=== PATIENT | female | born 1940 | race Caucasian/White ===

== ENCOUNTER 2018-06-27 11:04 | Inpatient (IN) | payer OTHER ==
--- NOTE | 2018-06-27 11:55 | PDOC ---
History of Present Illness - General Chief Complaint: Irregular Heart Beat Stated Complaint: SENT BY PCP Time Seen by Provider: 06/27/18 11:49 History Source: Patient, Nuclear Monitoring Technician Used Exam Limitations: Language Barrier - History of Present Illness Initial Comments: 78 yo F w a pmh of HTN, CAD (+stent), HLD presents to the ER sent from her PCP for an irregular heart beat. The patient went to her kidney doctor - Dr. Carreno - who said she should come to the ER to be evaluated because her heart was beating slowly. She states she was sent here because her heart is beating slowly, she was pale, and her heart was irregular. She denies currently having any chest pain, nausea, vomiting, or diaphoresis. She endorses feeling very tired, fatigues and is lacking strength. She also endorses discomfort with her breathing and shortness of breath. When she speaks alot she gets tired and feels short of breath. She has not taken any medications for this discomfort. She has been experiencing difficulty sleeping because of her uncomfortable heart beat. She denies recent fevers. Denies dysuria but endorses frequency urgency and hesitancy. Denies any history of blood clots in her chest or legs. Denies syncope or falling down. Denies recent travel. Denies having a significant family history of heart disease. She was told by her advanced manager 8 days to stop taking atenolol and she has not been taking atenolol for the past 8 days. PCP: Jose Viadl Set Up Person: Dr. Carreno Gas Pump Attendant: Kaylah Vieira from [facility] - [phone] PSH: Stent, vascular procedure on veins Allergies: NKA, NKDA Social Hx: Denies smoking, drinking, or other substance usage. Past History - Past Medical History Allergies/Adverse Reactions: Allergies Allergy/AdvReac Type Severity Reaction Status Date / Time No Known Drug Allergies Allergy Verified 06/27/18 11:48 Home Medications: Ambulatory Orders Hydrochlorothiazide [Hctz -] 25 mg PO DAILY 10/02/12 Aspirin Coated [Ecotrin -] 81 mg PO DAILY 06/27/18 Atenolol [Tenormin -] 50 mg PO DAILY 06/27/18 Lipase/Protease/Amylase [John Durand 36,000 Units Capsule] 1 each PO TID 06/27/18 Valsartan [Diovan] 160 mg PO DAILY 06/27/18 Anemia: No Asthma: No Cancer: No Cardiac Disorders: Yes (STENT, CAD) CVA: No COPD: No CHF: No Dementia: No Diabetes: No GI Disorders: No Disorders: No HTN: Yes Hypercholesterolemia: No Liver Disease: No Seizures: No Thyroid Disease: No - Surgical History Abdominal Surgery: No Appendectomy: No Cardiac Surgery: Yes (STENT) Cholecystectomy: No Lung Surgery: No Neurologic Surgery: No Orthopedic Surgery: No - Immunization History Immunization Up to Date: No - Suicide/Smoking/Psychosocial Hx Smoking History: Never smoked Have you smoked in the past 12 months: No Information on smoking cessation initiated: No Hx Alcohol Use: No Drug/Substance Use Hx: No Substance Use Type: None Hx Substance Use Treatment: No Review of Systems - Review of Systems Able to Perform ROS?: Yes Comments:: CONSTITUTIONAL: Present: Fatigue Absent: fever, no chills EYES: Absent: visual changes ENT: Absent: ear pain, no sore throat CARDIOVASCULAR: Present: Palpitations Absent: chest pain RESPIRATORY: Present: SOB Absent: cough GI: Absent: abdominal pain, no nausea, no vomiting, no constipation, no diarrhea GENITOURINARY: Absent: dysuria, no frequency, no hematuria MUSKULOSKELETAL: Absent: back pain, no arthralgia, no myalgia SKIN: Absent: rash NEURO: Absent: headache *Physical Exam - Vital Signs Last Vital Signs Temp Pulse Resp BP Pulse Ox 97.9 F 49 L 16 117/54 L 99 06/27/18 11:14 06/27/18 11:14 06/27/18 11:14 06/27/18 11:14 06/27/18 11:14 - Physical Exam Comments: GENERAL: Well-appearing, well-nourished. No apparent distress. HEENT: Normocephalic, atraumatic. PERRL, EOM intact. CARDIOVASCULAR: Normal S1, S2. Bradycardic rate and regular rhythm. PULMONARY: No evidence of respiratory distress. Lungs clear to auscultation bilaterally. No wheezing, rales or rhonchi. ABDOMEN: Soft, non-distended, non-tender. EXTREMITIES: Normal ROM in all four extremities. No gross deformities. SKIN: Warm, dry. No rash NEUROLOGICAL: No focal neurological deficits. ED Treatment Course - LABORATORY CBC & Chemistry Diagram: 06/27/18 12:20 06/27/18 12:09 Medical Decision Making - Medical Decision Making 78 yo F w a pmh of HTN, CAD (+stent), HLD presents to the ER sent from her PCP for an irregular heart beat. The patient went to her kidney doctor - Dr. Carreno - who said she should come to the ER to be evaluated because her heart was beating slowly. She states she was sent here because her heart is beating slowly, she was pale, and her heart was irregular. She denies currently having any chest pain, nausea, vomiting, or diaphoresis. She endorses feeling very tired, fatigues and is lacking strength. She also endorses discomfort with her breathing and shortness of breath. When she speaks alot she gets tired and feels short of breath. She has not taken any medications for this discomfort. She has been experiencing difficulty sleeping because of her uncomfortable heart beat. She denies recent fevers. Denies dysuria but endorses frequency urgency and hesitancy. Denies any history of blood clots in her chest or legs. Denies syncope or falling down. Denies recent travel. Denies having a significant family history of heart disease. She was told by her advanced manager 8 days to stop taking atenolol and she has not been taking atenolol for the past 8 days. VS: Bradycardic, otherwise WNL DDx IBNLT: Symptomatic bradycardia, anemia, ACS/NC, arrhythmia, medication side effect, electrolyte/metabolic disturbance, UTI/pylo Plan: Labs, Urine, EKG, CXR, Re-assess. EKG: Sinus bradycardia. At Dr. Carreno's office the patient had multiple episodes of bradycardia into the 30's. Patient was supposed to goto her advanced manager tomorrow to get a holter set up. Given multiple episodes of dropped heart beats associated with fatigue we will admit the patient to Tele Obs *DC/Admit/Observation/Transfer Diagnosis at time of Disposition: Bradycardia, Dropped heart beats - Discharge Dispostion Condition at time of disposition: Stable Decision to Admit order: Yes - Referrals Referrals: Jose Vidal MD [Primary Care Provider] - - Patient Instructions - Post Discharge Activity
--- NOTE | 2018-06-27 12:13 | PDOC ---
Attending Attestation - Resident Resident Name: Kelvin Hurt - ED Attending Attestation I have performed the following: I have examined & evaluated the patient, The case was reviewed & discussed with the resident, I agree w/resident's findings & plan, Exceptions are as noted - HPI HPI: 06/27/18 12:08 78 yo F h/o htn here with bradycardia. was sent from DR Carreno office. per Dr Carreno pt has been on atenolol in the past was told to discontinue and didn't stop taking it. was also c/o right sided chest discomfort and sob. no lightheaded. no h/o pe or prior dvt. - Physicial Exam PE: 06/27/18 12:10 awake alert lungs clear bilaterally heart irreg bradycardia. no mrg abd soft nt nd.e xt wwp no edema. no calf tenderness. 2+ dp/ pt. nuero alert oriented x 3. 5 /5 all four ext. pulses symmetric bilaterally. - Medical Decision Making 06/27/18 12:12 78 yo F with h/o ht, her with chest discomfort bradycardia. sinus jerilyn on ekg. sinus arrthymia. 46 bpm. differential med side effect, hypothyroid, worseing renal faliure electrolyte abnormality, mi, plan labs cxr trop bnp coags, tsh, . pt jose require admission to telemetry for monitoring dysrhtymia, and r/o acs. hold atenolol. Heart Score/ECG Review #1 General ECG Interpretation: Sinus Rhythm, No acute ischemic changes - ECG Intrepretation Comment:: 06/27/18 12:14 sinus bradycardia, sinus dysrthymia. - [place]: Left [place] Deviation - ECG Impressions Bradycardia: Yes
[2018-06-27 12:43] LABS: HEMATOCRIT 36.8 % (32.4-45.2); HEMOGLOBIN 12.6 GM/dL (10.7-15.3); MCH 31.9 pg (25.7-33.7); MCHC 34.2 g/dl (32.0-36.0); MEAN CELL VOLUME 93.3 fl (80-96); MEAN PLT VOLUME 9.8 fl (7.5-11.1); MONO % 6.3 % (3.8-10.2); NEUT % 45.7 % (42.8-82.8); PLATELET COUNT 190 K/MM3 (134-434); RBC 3.95 M/mm3 (3.60-5.2); RDW 13.1 % (11.6-15.6); WHITE BLOOD COUNT 5.3 K/mm3 (4.0-10.0)
[2018-06-27 12:55] LABS: INR 1.05 (0.83-1.09); PROTHROMBIN TIME (PATIENT) 12.4 SEC (9.7-13.0)
[2018-06-27 13:18] LABS: ALBUMIN 3.9 g/dl (3.4-5.0); ALK PHOS 71 U/L (45-117); ANION GAP 6 MMOL/L (8-16); BILIRUBIN,TOTAL 0.5 mg/dL (0.2-1); BLOOD UREA NITROGEN 20 mg/dL (7-18); CALCIUM 9.2 mg/dL (8.5-10.1); CHLORIDE 101 mmol/L (98-107); CO2 28 mmol/L (21-32); CREATININE 1.2 mg/dL (0.55-1.3); GLUCOSE,RANDOM 99 mg/dL (74-106); MAGNESIUM 1.9 mg/dL (1.8-2.4); POTASSIUM 4.4 mmol/L (3.5-5.1); SGOT/AST 19 U/L (15-37); SGPT/ALT 21 U/L (13-61); SODIUM 135 mmol/L (136-145); TOT PROT 7.8 g/dl (6.4-8.2)
--- NOTE | 2018-06-27 16:09 | HP ---
Admitting History and Physical - Primary Care Physician PCP: Jose Vidal - Admission Chief Complaint: sent in for bradycardia History of Present Illness: 78 yo F h/o htn here with bradycardia. was sent from DR Carreno office. per Dr Carreno pt has been on atenolol in the past was told to discontinue and didn't stop taking it. was also c/o right sided chest discomfort and sob. no lightheaded. no h/o pe or prior dvt. EKG shows bradycardia with pause History Source: Patient, Medical Record - Past Medical History Cardiovascular: Yes: HTN - Smoking History Smoking history: Never smoked Have you smoked in the past 12 months: No - Alcohol/Substance Use Hx Alcohol Use: No Home Medications - Allergies Allergies/Adverse Reactions: Allergies Allergy/AdvReac Type Severity Reaction Status Date / Time No Known Drug Allergies Allergy Verified 06/27/18 11:48 - Home Medications Home Medications: Ambulatory Orders Hydrochlorothiazide [Hctz -] 25 mg PO DAILY 10/02/12 Aspirin Coated [Ecotrin -] 81 mg PO DAILY 06/27/18 Atenolol [Tenormin -] 50 mg PO DAILY 06/27/18 Lipase/Protease/Amylase [John Durand 36,000 Units Capsule] 1 each PO TID 06/27/18 Valsartan [Diovan] 160 mg PO DAILY 06/27/18 Review of Systems - Review of Systems Cardiovascular: reports: No Symptoms Respiratory: reports: No Symptoms Physical Examination Vital Signs: Vital Signs Temperature 98 F 06/27/18 15:33 Pulse Rate 52 L 06/27/18 15:33 Respiratory Rate 16 06/27/18 15:33 Blood Pressure 147/72 06/27/18 15:33 O2 Sat by Pulse Oximetry (%) 100 06/27/18 15:33 Constitutional: Yes: Calm Cardiovascular: Yes: Regular Rate and Rhythm, S1, S2 Respiratory: Yes: CTA Bilaterally Gastrointestinal: Yes: Normal Bowel Sounds, Soft Edema: No Neurological: Yes: Alert, Oriented Labs: CBC, BMP 06/27/18 12:20 06/27/18 12:09 Imaging - Results Chest X-ray: Report Reviewed (clear lung large heart unfolded aorta) Problem List - Problems (1) Bradycardia Assessment/Plan: telemetry hold all AV willian agents cardiology consult dvt ppx echo Code(s): R00.1 - BRADYCARDIA, UNSPECIFIED (2) HTN (hypertension) Assessment/Plan: hold atenolol will hold dureitic as well monitor BP Code(s): I10 - ESSENTIAL (PRIMARY) HYPERTENSION
[2018-06-27 16:50] VITALS: BMI 34.5
--- NOTE | 2018-06-27 17:28 | CON.CARD ---
Consult Consult Specialty:: Cardiology Reason for Consultation:: Bradycardia - History of Present Illness History of Present Illness: 78 F with HTN. Abnormal stress test in the past and describles possibly having a cath 2 years ago without intervention. She cannot recal name of charge weigher. Admitted with fatigue and bradycardia. ECG with Sinus jerilyn and marked sinus arryhthmia without prolonged pauses on Atenolol.. She has no chest pain. - Past Medical History Cardio/Vascular: Yes: HTN ...: No - Alcohol/Substance Use Hx Alcohol Use: No - Smoking History Smoking history: Never smoked Have you smoked in the past 12 months: No Home Medications - Allergies Allergies/Adverse Reactions: Allergies Allergy/AdvReac Type Severity Reaction Status Date / Time No Known Drug Allergies Allergy Verified 06/27/18 11:48 - Home Medications Home Medications: Ambulatory Orders Hydrochlorothiazide [Hctz -] 25 mg PO DAILY 10/02/12 Aspirin Coated [Ecotrin -] 81 mg PO DAILY 06/27/18 Atenolol [Tenormin -] 50 mg PO DAILY 06/27/18 Lipase/Protease/Amylase [John Dr 36,000 Units Capsule] 1 each PO TID 06/27/18 Valsartan [Diovan] 160 mg PO DAILY 06/27/18 Review of Systems - Review of Systems Constitutional: reports: No Symptoms, Lethargy Eyes: reports: No Symptoms HENT: reports: No Symptoms Neck: reports: No Symptoms Cardiovascular: reports: Shortness of Breath. denies: Chest Pain, Edema, Palpitations Respiratory: reports: No Symptoms Gastrointestinal: reports: No Symptoms Vital Signs: Vital Signs Temperature 98 F 06/27/18 16:36 Pulse Rate 58 L 06/27/18 16:36 Respiratory Rate 18 06/27/18 16:36 Blood Pressure 122/78 06/27/18 16:36 O2 Sat by Pulse Oximetry (%) 100 06/27/18 15:33 Constitutional: Yes: Well Nourished, No Distress, Calm Eyes: Yes: Conjunctiva Clear, EOM Intact HENT: Yes: Atraumatic, Normocephalic Neck: Yes: Supple, Trachea Midline Respiratory: Yes: Regular, CTA Bilaterally Gastrointestinal: Yes: Normal Bowel Sounds Cardiovascular: Yes: Bradycardia JVD: No Carotid Bruit: No PMI: Non-Displaced Heart Sounds: Yes: S1, S2 Murmur: No: Systolic Murmur, Diastolic Murmur Edema: No - Other Data Labs, Other Data: CBC, BMP 06/27/18 12:20 06/27/18 12:09 INR, PTT INR 1.05 (0.83-1.09) 06/27/18 12:20 Troponin, BNP 06/27/18 12:09 Troponin I < 0.02 Troponin, BNP 06/27/18 12:09 Troponin I < 0.02 Sinus jerilyn Sinus arrhythmia no ST T changes. Problem List - Problems (1) Bradycardia Code(s): R00.1 - BRADYCARDIA, UNSPECIFIED Assessment/Plan 78 F with HTN. Abnormal stress test in the past and describles possibly having a cath 2 years ago without intervention. She cannot recal name of charge weigher. Admitted with fatigue and bradycardia. ECG with Sinus jerilyn and marked sinus arryhthmia without prolonged pauses on Atenolol.. She has no chest pain. Hold Atenolo. No indication for pacing. Monitor on telem. Avoid AV willian agent.
[2018-06-27] MEDS ORDERED: PNEUMOC 13-VAL CONJ-DIP CRM/PF 0.5 ML DISP.SYRIN IM ONE (17:30)
[2018-06-27] MEDS: LIPASE/PROTEASE/AMYLASE 36,000 UNIT CAPSULE PO SCH (18:49)
[2018-06-27] MEDS: HEPARIN NA (PORCINE) 5,000 UNITS/ML 1ML VIAL SQ SCH (22:29)
[2018-06-28 07:29] LABS: BASO % 1.1 % (0-2.0); HEMOGLOBIN 12.8 GM/dL (10.7-15.3); LYMPH % 41.3 % (8-40); MCH 31.8 pg (25.7-33.7); MCHC 33.8 g/dl (32.0-36.0); MONO % 5.5 % (3.8-10.2); NEUT % 40.1 % (42.8-82.8); PLATELET COUNT 190 K/MM3 (134-434); RBC 4.04 M/mm3 (3.60-5.2); RDW 13.2 % (11.6-15.6); WHITE BLOOD COUNT 4.8 K/mm3 (4.0-10.0)
[2018-06-28 08:30] LABS: ALBUMIN 3.7 g/dl (3.4-5.0); ALK PHOS 74 U/L (45-117); BILIRUBIN,TOTAL 0.4 mg/dL (0.2-1); BLOOD UREA NITROGEN 21 mg/dL (7-18); CALCIUM 9.4 mg/dL (8.5-10.1); CHLORIDE 102 mmol/L (98-107); CHOLESTEROL 240 mg/dL (50-200); CO2 29 mmol/L (21-32); CREATININE 1.3 mg/dL (0.55-1.3); GLUCOSE,RANDOM 114 mg/dL (74-106); HDL CHOLESTEROL 27 mg/dL (40-60); N-TERMINAL BNP 172.1 pg/ml (5-450); PHOSPHOROUS 3.4 mg/dL (2.5-4.9); POTASSIUM 4.5 mmol/L (3.5-5.1); SGOT/AST 16 U/L (15-37); SGPT/ALT 20 U/L (13-61); SODIUM 138 mmol/L (136-145); TOT PROT 7.6 g/dl (6.4-8.2); TRIGLYCERIDES 284 mg/dL (0-150)
[2018-06-28 08:38] LABS: ANION GAP 8 MMOL/L (8-16)
--- NOTE | 2018-06-28 09:46 | PN ---
Progress Note, Physician - Current Medication List Current Medications: Active Medications Aspirin (Ecotrin -) 81 mg PO DAILY [facility] Heparin Sodium (Porcine) (Heparin -) 5,000 unit SQ BID [facility] Last Admin: 06/27/18 22:29 Dose: 5,000 unit Pancrelipase (Creon Dr 36,000 Units Capsule) 1 cap PO TIDCM [facility] Last Admin: 06/27/18 18:49 Dose: Not Given - Objective Vital Signs: Vital Signs Temperature 99.1 F 06/28/18 06:00 Pulse Rate 54 L 06/28/18 09:29 Respiratory Rate 18 06/28/18 09:29 Blood Pressure 129/75 06/28/18 09:29 O2 Sat by Pulse Oximetry (%) 100 06/27/18 21:00 Cardiovascular: Yes: Bradycardia, S1, S2 Respiratory: Yes: Regular, CTA Bilaterally Gastrointestinal: Yes: Normal Bowel Sounds, Soft Labs: CBC, BMP 06/28/18 06:00 06/28/18 06:00 INR, PTT INR 1.05 (0.83-1.09) 06/27/18 12:20 Problem List - Problems (1) Bradycardia Assessment/Plan: telemetry hold all AV willian agents cardiology consult noted dvt ppx echo hold atenolol Code(s): R00.1 - BRADYCARDIA, UNSPECIFIED (2) Weakness Assessment/Plan: -monitor Code(s): R53.1 - WEAKNESS (3) HTN (hypertension) Assessment/Plan: hold atenolol will hold dureitic as well monitor BP Code(s): I10 - ESSENTIAL (PRIMARY) HYPERTENSION (4) HLD (hyperlipidemia) Assessment/Plan: start statin Code(s): E78.5 - HYPERLIPIDEMIA, UNSPECIFIED (5) AAA (abdominal aortic aneurysm) Assessment/Plan: -us Code(s): I71.4 - ABDOMINAL AORTIC ANEURYSM, WITHOUT RUPTURE
[2018-06-28] MEDS ORDERED: PT OWN MED DRAWER 7, Y5N ONE (11:17)
[2018-06-28] MEDS: ASPIRIN COATED 81 MG TABLET.EC PO SCH (11:28)
[2018-06-28] MEDS: LIPASE/PROTEASE/AMYLASE 36,000 UNIT CAPSULE PO SCH ×3 (11:29→17:56)
[2018-06-28] MEDS: HEPARIN NA (PORCINE) 5,000 UNITS/ML 1ML VIAL SQ SCH ×2 (11:29→21:34)
--- NOTE | 2018-06-28 14:28 | PN ---
Progress Note, Physician Chief Complaint: cardiology FU Telem NSR No prolonged pauses. Sinus arrhythmia. History of Present Illness: 78 F with HTN. Abnormal stress test in the past and describles possibly having a cath 2 years ago without intervention. She cannot recall name of heel scourer. Admitted with fatigue and bradycardia. ECG with Sinus jerilyn and marked sinus arryhthmia without prolonged pauses on Atenolol.. She has no chest pain. - Current Medication List Current Medications: Active Medications Aspirin (Ecotrin -) 81 mg PO DAILY [facility] Last Admin: 06/28/18 11:28 Dose: 81 mg Atorvastatin Calcium (Lipitor -) 20 mg PO HS [facility] Heparin Sodium (Porcine) (Heparin -) 5,000 unit SQ BID [facility] Last Admin: 06/28/18 11:29 Dose: 5,000 unit Pancrelipase (Creon Dr 36,000 Units Capsule) 1 cap PO TIDCM [facility] Last Admin: 06/28/18 11:29 Dose: 1 cap - Objective Vital Signs: Vital Signs Temperature 99.1 F 06/28/18 06:00 Pulse Rate 54 L 06/28/18 09:29 Respiratory Rate 18 06/28/18 09:29 Blood Pressure 129/75 06/28/18 09:29 O2 Sat by Pulse Oximetry (%) 100 06/27/18 21:00 Constitutional: Yes: Well Nourished, No Distress, Calm Eyes: Yes: Conjunctiva Clear, EOM Intact HENT: Yes: Atraumatic, Normocephalic Neck: Yes: Supple, Trachea Midline Cardiovascular: Yes: Regular Rate and Rhythm, S1, S2. No: JVD, Murmur Respiratory: Yes: Regular, CTA Bilaterally Gastrointestinal: Yes: Normal Bowel Sounds, Soft Edema: No Labs: CBC, BMP 06/28/18 06:00 06/28/18 06:00 INR, PTT INR 1.05 (0.83-1.09) 06/27/18 12:20 Problem List - Problems (1) Bradycardia Code(s): R00.1 - BRADYCARDIA, UNSPECIFIED Assessment/Plan 78 F with HTN. Abnormal stress test in the past and describles possibly having a cath 2 years ago without intervention. She cannot recall name of heel scourer. Admitted with fatigue and bradycardia. ECG with Sinus jerilyn and marked sinus arryhthmia without prolonged pauses on Atenolol.. She has no chest pain. Mild sinus bradycardia with Sinus arrhythmia and no prolonged pauses. No indication for permanant pacing Avoid AV willian agent. Will see as needed. DC telem
--- NOTE | 2018-06-28 15:29 | ECHO ---
Name: ELHAM SOTO Exam:Adult Echocardiogram Study Date: 06/28/2018 11:44 AM Age: 78 yrs Reason For Study: WALL MOTION ABNORMALITY Height: 60 in Weight: 180 lb BSA: 1.8 m2 MMode/2D Measurements & Calculations IVSd: 0.83 cm Ao root diam: 3.2 cm LVIDd: 4.7 cm LVIDs: 3.2 cm LVPWd: 0.83 cm EDV(Teich): 100.3 ml LVOT diam: 2.0 cm ESV(Teich): 41.4 ml TAPSE: 2.9 cm Doppler Measurements & Calculations MV E max daron: 45.9 cm/sec Ao V2 max: 115.4 cm/sec MV A max daron: 89.3 cm/sec Ao max P.3 mmHg MV E/A: 0.51 Ao V2 mean: 77.2 cm/sec MV dec time: 0.29 sec Ao mean P.7 mmHg Ao V2 VTI: 25.8 cm FIDEL(I,D): 3.0 cm2 FIDEL(V,D): 3.1 cm2 LV V1 max P.7 mmHg SV(LVOT): 76.2 ml LV V1 mean P.2 mmHg LV V1 max: 108.1 cm/sec LV V1 mean: 69.0 cm/sec LV V1 VTI: 23.3 cm TR max daron: 224.1 cm/sec PI end-d daron: 111.2 cm/sec TR max P.5 mmHg Med Peak E' Daron: 3.7 cm/sec Med E/e': 12.5 Lat Peak E' Daron: 5.8 cm/sec Lat E/e': 7.8 Procedure A two-dimensional transthoracic echocardiogram with color flow and Doppler was performed. The study w as technically difficult with many images being suboptimal in quality. Left Ventricle The left ventricular size, thickness and function are normal. The left ventricular ejection fraction is normal. E/A reversal consistent with but not diagnostic of poor LV compliance. The left ventricular w all motion is normal. Right Ventricle The right ventricle is normal in size and function. Atria Normal left and right atrial size and function. Mitral Valve There is mild mitral valve thickening. There is no mitral valve stenosis. There is trace to mild mitr al regurgitation. Tricuspid Valve There is mild tricuspid valve thickening. There is no tricuspid stenosis. There is mild tricuspid regurgitation. Right ventricular systolic pressure is normal. Aortic Valve The aortic valve is normal in structure and function. No hemodynamically significant valvular aortic stenosis. No aortic regurgitation is present. Pulmonic Valve The pulmonic valve is not well visualized. There is no pulmonic valvular stenosis. Moderate pulmonic valvular regurgitation. Great Vessels The aortic root is normal size. Pericardium/Pleura There is no pericardial effusion. Interpretation Summary The study was technically difficult with many images being suboptimal in quality. The left ventricular size, thickness and function are normal The left ventricular ejection fraction is normal. The left ventricular wall motion is normal. There is mild tricuspid regurgitation. Right ventricular systolic pressure is normal. There is trace to mild mitral regurgitation. E/A reversal consistent with but not diagnostic of poor LV compliance MD Joshua Landaverde 06/28/2018 03:29 PM
--- NOTE | 2018-06-28 16:21 | PN ---
Progress Note (short form) - Note Progress Note: Vascular Surgery CT abd reviewed. Pt seen in office in may. AAA is 4.5cm. No need for repair unless greater than 5.5cm. Pt has US scheduled in our office in 6 months. Will surveillance AAA. Darnell Mueller dO
--- NOTE | 2018-06-28 18:40 | CON.NEP ---
Consult Consult Specialty:: Nephrology Referred by:: dr hughes Reason for Consultation:: htn, renal disease - History of Present Illness Chief Complaint: bradycardia History of Present Illness: presented with bradycardia sent from DR Carreno office. on atenolol in the past was told to discontinue and didn't stop taking it. also c/o right sided chest discomfort and sob. no lightheadedness. EKG shows bradycardia with pause she has underlying ckd and azotemia - Past Medical History Cardio/Vascular: Yes: HTN ...: No - Alcohol/Substance Use Hx Alcohol Use: No - Smoking History Smoking history: Never smoked Have you smoked in the past 12 months: No Home Medications - Allergies Allergies/Adverse Reactions: Allergies Allergy/AdvReac Type Severity Reaction Status Date / Time No Known Drug Allergies Allergy Verified 06/27/18 11:48 - Home Medications Home Medications: Ambulatory Orders Hydrochlorothiazide [Hctz -] 25 mg PO DAILY 10/02/12 Aspirin Coated [Ecotrin -] 81 mg PO DAILY 06/27/18 Atenolol [Tenormin -] 50 mg PO DAILY 06/27/18 Lipase/Protease/Amylase [John Durand 36,000 Units Capsule] 1 each PO TID 06/27/18 Valsartan [Diovan] 160 mg PO DAILY 06/27/18 Nephrology Consult - Height Height: 5 ft - Weight Weight: 177 lb - BMI Body Mass Index (BMI): 34.5 - Lab Results CBC,BMP: CBC, BMP 06/28/18 06:00 06/28/18 06:00 Anion Gap: Anion Gap Anion Gap 8 MMOL/L (8-16) 06/28/18 06:00 - Physical Examination Vital Signs: Vital Signs Temperature 99.1 F 06/28/18 06:00 Pulse Rate 54 L 06/28/18 09:29 Respiratory Rate 18 06/28/18 09:29 Blood Pressure 129/75 06/28/18 09:29 O2 Sat by Pulse Oximetry (%) 100 06/27/18 21:00 Constitutional: Yes: Well Nourished, No Distress, Calm Eyes: Yes: WNL, Conjunctiva Clear, EOM Intact HENT: Yes: WNL, Atraumatic, Normocephalic Neck: Yes: WNL, Supple, Trachea Midline Cardiovascular: Yes: WNL, Regular Rate and Rhythm Respiratory: Yes: WNL, Regular, CTA Bilaterally Gastrointestinal: Yes: WNL, Normal Bowel Sounds Renal/: Yes: WNL Musculoskeletal: Yes: WNL Extremities: Yes: WNL Edema: No Integumentary: Yes: WNL Wound/Incision: No: Clean/Dry, Well Approximated, Sutures Intact, Aretha Intact , Steri Strips, Open to air, Dressing Dry and Intact, Dressing Removed, [place] Removed, Sutures Removed, Draining, Reddened, Bleeding, Excoriated, Unapproximated, Other Neurological: Yes: WNL, Alert, Oriented Psychiatric: Yes: WNL, Alert, Oriented Assessment/Plan HTN CKD Mild azotemia Sinus Bradycardia probably med- induced (atenolol) being monitored and taken off atenolol Plan encourage hydration orally or IV if unable to take enough fluid by mouth
[2018-06-28] MEDS ORDERED: ATORVASTATIN CA 20 MG TABLET (FP) PO SCH (22:00)
[2018-06-29 07:26] LABS: ALBUMIN 3.6 g/dl (3.4-5.0); ALK PHOS 87 U/L (45-117); ANION GAP 10 MMOL/L (8-16); BILIRUBIN,TOTAL 0.4 mg/dL (0.2-1); BLOOD UREA NITROGEN 26 mg/dL (7-18); CALCIUM 8.9 mg/dL (8.5-10.1); CHLORIDE 105 mmol/L (98-107); CO2 25 mmol/L (21-32); CREATININE 1.4 mg/dL (0.55-1.3); GLUCOSE,RANDOM 112 mg/dL (74-106); POTASSIUM 4.7 mmol/L (3.5-5.1); SGOT/AST 21 U/L (15-37); SGPT/ALT 20 U/L (13-61); SODIUM 140 mmol/L (136-145); TOT PROT 7.3 g/dl (6.4-8.2)
[2018-06-29] MEDS: LIPASE/PROTEASE/AMYLASE 36,000 UNIT CAPSULE PO SCH (10:19)
[2018-06-29] MEDS: ASPIRIN COATED 81 MG TABLET.EC PO SCH (10:20)
[2018-06-29] MEDS: HEPARIN NA (PORCINE) 5,000 UNITS/ML 1ML VIAL SQ SCH (10:20)
[2018-06-29 11:04] VITALS: BP 140/75; PULSE 65; TEMP 97.5
--- NOTE | 2018-06-29 11:39 | EKG ---
Test Reason : Blood Pressure : / mmHG Vent. Rate : 046 BPM Atrial Rate : 046 BPM P-R Int : 188 ms QRS Dur : 080 ms QT Int : 448 ms P-R-T Axes : 039 006 068 degrees QTc Int : 392 ms SINUS BRADYCARDIA WITH MARKED SINUS ARRHYTHMIA OTHERWISE NORMAL ECG WHEN COMPARED WITH ECG OF 02-JAN-2014 08:28, NO SIGNIFICANT CHANGE WAS FOUND Confirmed by LAUREN JOHNSON MD ([id number]) on 06/29/2018 11:39:12 AM Referred By: Confirmed By:LAUREN JOHNSON MD
--- NOTE | 2018-06-29 12:11 | DS ---
Physical Examination Vital Signs: Vital Signs Temperature 97.5 F L 06/29/18 09:30 Pulse Rate 65 06/29/18 09:30 Respiratory Rate 18 06/29/18 09:30 Blood Pressure 140/75 06/29/18 09:30 O2 Sat by Pulse Oximetry (%) 100 06/28/18 21:00 Findings/Remarks: feels well walking around wants to go home Cardiovascular: Yes: Regular Rate and Rhythm Respiratory: Yes: Regular, CTA Bilaterally Gastrointestinal: Yes: Normal Bowel Sounds, Soft Labs: CBC, BMP 06/28/18 06:00 06/29/18 05:30 Discharge Summary Reason For Visit: BRADYCARIA Current Active Problems Bradycardia (Acute) Dropped heart beats (Acute) HLD (hyperlipidemia) (Acute) HTN (hypertension) (Acute) Weakness (Acute) Hospital Course: - Problems (1) Bradycardia Assessment/Plan: telemetry--improved hold all AV willian agents cardiology consult noted echo hold atenolol Code(s): R00.1 - BRADYCARDIA, UNSPECIFIED (2) ckd Assessment/Plan: -monitor as outpatient (3) HTN (hypertension) Assessment/Plan: hold atenolol will hold dureitic and arb as well monitor BP and labs norvasc 2.5 qd Code(s): I10 - ESSENTIAL (PRIMARY) HYPERTENSION (4) HLD (hyperlipidemia) Assessment/Plan: start statin Code(s): E78.5 - HYPERLIPIDEMIA, UNSPECIFIED (5) AAA (abdominal aortic aneurysm) Assessment/Plan: --- Code(s): I71.4 - ABDOMINAL AORTIC ANEURYSM, WITHOUT RUPTURE Condition: Improved - Instructions Diet, Activity, Other Instructions: follow up with dr vidal in one week for blood pressure and blood work for kidneys Referrals: Jose Vidal MD [Primary Care Provider] - 1 Week Disposition: HOME - Home Medications Comprehensive Discharge Medication List: Ambulatory Orders Aspirin Coated [Ecotrin -] 81 mg PO DAILY 06/27/18 Amlodipine Besylate 2.5 mg PO DAILY #30 tablet 06/29/18 Atorvastatin Ca [Lipitor] 20 mg PO HS #30 tablet 06/29/18 Lipase/Protease/Amylase [John Durand 36,000 Units Capsule] 1 cap PO TIDCM capsule. 06/29/18
[2018-06-29] MEDS ORDERED: amLODIPine BESYLATE 2.5 MG TABLET (FP) PO SCH (12:15)
== END 2018-06-29 13:52 | disposition home or self-care (01) | DRG 310 ==
LOC: JER 11:04 → JERBED 13:57 → INTOOBSV 13:57 → OBSVTOIN 16:10 → J4W 16:32
PROVIDERS: ADMIT Family Medicine; ATTEND Family Medicine
DX: R00.1 Bradycardia, unspecified (principal); I49.9 Cardiac arrhythmia, unspecified; I25.10 Atherosclerotic heart disease of native coronary artery without angina pectoris; I12.9 Hypertensive chronic kidney disease with stage 1 through stage 4 chronic kidney disease, or unspecified chronic kidney disease; Z98.61 Coronary angioplasty status; N18.9 Chronic kidney disease, unspecified; E78.5 Hyperlipidemia, unspecified; I71.4 Abdominal aortic aneurysm, without rupture; R53.1 Weakness
CPT/HCPCS: 36415; 71046-TC-FY; 80053; 80061; 82550; 82553; 83721; 83735; 83880; 84100; 84436; 84443; 84484; 85025; 85610; 90670; 93005; 93010; 93306-TC; 99283-25; G0378; J1644

== ENCOUNTER 2021-02-16 04:31 | Inpatient (IN) | payer OTHER ==
[2021-02-16] MEDS ORDERED: ceFAZolin SODIUM 1 GM VIAL ONE (06:45)
[2021-02-16] MEDS ORDERED: PROTAMINE SULFATE 50 MG/5 ML VIAL ONE (07:33)
[2021-02-16] MEDS ORDERED: MIDAZOLAM HCL 2 MG/2 ML SINGLE DOSE VIAL ONE ×2 (07:36)
[2021-02-16] MEDS ORDERED: HEPARIN NA (PORCINE) 5,000 UNITS/ML 1ML VIAL ONE (07:36)
[2021-02-16] MEDS ORDERED: fentaNYL CITRATE 250 MCG/5 ML VIAL ONE (07:36)
[2021-02-16] MEDS ORDERED: ROCURONIUM BROMIDE 50 MG/5 ML SYRINGE ONE ×2 (07:36→10:27)
[2021-02-16] MEDS ORDERED: PROPOFOL 20 ML ONE (07:36)
[2021-02-16] MEDS ORDERED: CEFAZOLIN 2 GM in DEXTROSE 5%-WATER - 100 ML IVPB ONE (08:00)
[2021-02-16] MEDS ORDERED: ceFAZolin SODIUM 1 GM VIAL IVPB ONE ×2 (08:55→12:55)
[2021-02-16] MEDS ORDERED: HYDROmorphone HCl 2 MG/ML VIAL ONE (09:46)
[2021-02-16] MEDS ORDERED: NEOSTIGMINE METHYLSULFATE 0.5 MG/1 ML - 10 ML MDV ONE (13:17)
[2021-02-16] MEDS ORDERED: POVIDONE-IODINE OINTMENT 10% - 28.4 GM TUBE ONE (13:43)
[2021-02-16] MEDS ORDERED: ONDANSETRON 4 MG/2 ML VIAL IVPUSH PRN (14:30)
[2021-02-16] MEDS ORDERED: LACTATED RINGERS SOLUTION 1,000 ML IV SCH (14:30)
[2021-02-16] MEDS ORDERED: PROMETHAZINE HCL 25 MG/1 ML VIAL IVPUSH PRN (14:30)
[2021-02-16] MEDS: morphine SULFATE 4 MG/ML VIAL IVPUSH PRN (16:34)
[2021-02-16] MEDS ORDERED: amLODIPine BESYLATE 2.5 MG TABLET (FP) PO ONE (16:39)
[2021-02-16] MEDS: ATORVASTATIN CA 20 MG TABLET (FP) PO SCH (16:53)
[2021-02-16 17:17] LABS: HEMATOCRIT 35.9 % (32.4-45.2); HEMOGLOBIN 12.2 GM/dL (10.7-15.3); MCH 31.4 pg (25.7-33.7); MCHC 33.9 g/dl (32.0-36.0); MEAN CELL VOLUME 92.7 fl (80-96); MEAN PLT VOLUME 8.3 fl (7.5-11.1); PLATELET COUNT 192 10^3/uL (134-434); RBC 3.88 M/mm3 (3.60-5.2); RDW 13.1 % (11.6-15.6); WHITE BLOOD COUNT 8.3 K/mm3 (4.0-10.0)
[2021-02-16 19:13] LABS: ALBUMIN 3.2 g/dl (3.4-5.0); BILIRUBIN,TOTAL 0.3 mg/dL (0.2-1); BLOOD UREA NITROGEN 15.6 mg/dL (7-18); CALCIUM 8.1 mg/dL (8.5-10.1); CREATININE 1.4 mg/dL (0.55-1.3); MAGNESIUM 1.8 mg/dL (1.8-2.4); PHOSPHOROUS 3.6 mg/dL (2.5-4.9); TOT PROT 7.1 g/dl (6.4-8.2)
[2021-02-16] MEDS: CHLORHEXIDINE GLUCONATE 4% CLEANSER FOR DECOLONIZATION TP SCH (22:30)
[2021-02-16] MEDS: MUPIROCIN 2% TOPICAL OINTMENT FOR DECOLONIZATION NS SCH (22:30)
[2021-02-17] MEDS: morphine SULFATE 4 MG/ML VIAL IVPUSH PRN (03:11)
[2021-02-17 07:26] LABS: BASO % 0.5 % (0-2.0); EOS % 0.2 % (0-4.5); HEMATOCRIT 33.8 % (32.4-45.2); HEMOGLOBIN 11.6 GM/dL (10.7-15.3); LYMPH % 12.6 % (8-40); MCH 31.7 pg (25.7-33.7); MCHC 34.3 g/dl (32.0-36.0); MEAN CELL VOLUME 92.4 fl (80-96); MEAN PLT VOLUME 8.7 fl (7.5-11.1); MONO % 7.2 % (3.8-10.2); NEUT % 79.5 % (42.8-82.8); PLATELET COUNT 181 10^3/uL (134-434); RBC 3.66 M/mm3 (3.60-5.2); RDW 13.2 % (11.6-15.6); WHITE BLOOD COUNT 9.1 K/mm3 (4.0-10.0)
[2021-02-17] MEDS ORDERED: amLODIPine BESYLATE 2.5 MG TABLET (FP) PO SCH ×2 (07:30→10:00)
[2021-02-17] MEDS ORDERED: amLODIPine BESYLATE 2.5 MG TABLET (FP) PO ONE (08:01)
[2021-02-17 08:45] LABS: ALBUMIN 2.9 g/dl (3.4-5.0); BILIRUBIN,TOTAL 0.4 mg/dL (0.2-1); BLOOD UREA NITROGEN 17.4 mg/dL (7-18); CALCIUM 8.2 mg/dL (8.5-10.1); CREATININE 1.5 mg/dL (0.55-1.3); MAGNESIUM 1.7 mg/dL (1.8-2.4); PHOSPHOROUS 3.2 mg/dL (2.5-4.9); TOT PROT 6.6 g/dl (6.4-8.2)
[2021-02-17] MEDS: ATORVASTATIN CA 20 MG TABLET (FP) PO SCH (09:17)
[2021-02-17] MEDS: MUPIROCIN 2% TOPICAL OINTMENT FOR DECOLONIZATION NS SCH ×2 (09:17→22:28)
[2021-02-17] MEDS ORDERED: LABETALOL HCL 5 MG/1 ML (100MG/20 ML VIAL) IVPUSH ONE ×2 (09:41→16:20)
[2021-02-17] MEDS ORDERED: amLODIPine BESYLATE 5 MG TABLET (FP) PO SCH (10:00)
[2021-02-17] MEDS ORDERED: VALSARTAN 160 MG TABLET PO SCH (10:00)
[2021-02-17] MEDS ORDERED: ACETAMINOPHEN 1000 MG/100 ML BAG IVPB ONE (18:33)
[2021-02-17 22:16] LABS: EPI CELLS 9 /uL (0-25.1); HYALINE CASTS 1 /uL (0-3.1); PH,URINE 5.5 (5.0-8.0); URINE APPEARANCE CLEAR; URINE BACTERIA 114 /uL (0-1359); URINE BILIRUBIN NEGATIVE (NEGATIVE); URINE COLOR YELLOW; URINE GLUCOSE (UA) NEGATIVE (NEGATIVE); URINE KETONE NEGATIVE (NEGATIVE); URINE LEUK ESTERASE 2+ (NEGATIVE); URINE NITRITE NEGATIVE (NEGATIVE); URINE PROTEIN TRACE (NEGATIVE); URINE RBC 8 /uL (0-23.9); URINE UROBILINOGEN 0.2 mg/dL (0.2-1.0); URINE WBC 194 /uL (0-25.8)
[2021-02-17] MEDS: CHLORHEXIDINE GLUCONATE 4% CLEANSER FOR DECOLONIZATION TP SCH (22:28)
[2021-02-18] MEDS ORDERED: amLODIPine BESYLATE 5 MG TABLET (FP) PO ONE (05:58)
[2021-02-18] MEDS ORDERED: amLODIPine BESYLATE 5 MG TABLET (FP) PO SCH (06:01)
[2021-02-18] MEDS ORDERED: ACETAMINOPHEN 325 MG TABLET (FP) PO PRN (06:08)
[2021-02-18] MEDS: ACETAMINOPHEN 325 MG TABLET (FP) PO PRN ×3 (06:23→21:15)
[2021-02-18 07:05] LABS: BASO % 0.7 % (0-2.0); EOS % 7.4 % (0-4.5); HEMATOCRIT 34.1 % (32.4-45.2); HEMOGLOBIN 11.5 GM/dL (10.7-15.3); MCH 31.5 pg (25.7-33.7); MCHC 33.8 g/dl (32.0-36.0); MEAN CELL VOLUME 93.2 fl (80-96); MEAN PLT VOLUME 8.8 fl (7.5-11.1); MONO % 6.8 % (3.8-10.2); NEUT % 69.1 % (42.8-82.8); PLATELET COUNT 174 10^3/uL (134-434); RBC 3.66 M/mm3 (3.60-5.2); RDW 13.3 % (11.6-15.6); WHITE BLOOD COUNT 9.7 K/mm3 (4.0-10.0)
[2021-02-18 08:22] LABS: BLOOD UREA NITROGEN 17.8 mg/dL (7-18); CALCIUM 8.3 mg/dL (8.5-10.1); CREATININE 1.4 mg/dL (0.55-1.3)
[2021-02-18] MEDS ORDERED: oxyCODONE HCL 5 MG TABLET PO PRN ×6 (10:07→19:24)
[2021-02-18] MEDS: MUPIROCIN 2% TOPICAL OINTMENT FOR DECOLONIZATION NS SCH (10:30)
[2021-02-18] MEDS: ATORVASTATIN CA 20 MG TABLET (FP) PO SCH ×2 (10:30→21:15)
[2021-02-18] MEDS ORDERED: cefTRIAXone SODIUM 1 GM VIAL ONE (16:08)
[2021-02-18] MEDS ORDERED: DEXTROSE 5%-WATER - 50 ML IVPB ONE (16:09)
[2021-02-18] MEDS: CEFTRIAXONE 1 GM in DEXTROSE 5%-WATER - 50 ML IVPB SCH (16:19)
[2021-02-18 20:12] LABS: MAGNESIUM 1.9 mg/dL (1.8-2.4); PHOSPHOROUS 2.9 mg/dL (2.5-4.9)
[2021-02-18] MEDS ORDERED: CHLORHEXIDINE GLUCONATE 4% CLEANSER FOR DECOLONIZATION TP SCH (22:00)
[2021-02-18] MEDS ORDERED: MUPIROCIN 2% TOPICAL OINTMENT FOR DECOLONIZATION NS SCH (22:00)
[2021-02-19 08:28] LABS: HEMATOCRIT 32.1 % (32.4-45.2); HEMOGLOBIN 10.9 GM/dL (10.7-15.3); MCH 31.7 pg (25.7-33.7); MCHC 34.1 g/dl (32.0-36.0); MEAN CELL VOLUME 93.1 fl (80-96); MEAN PLT VOLUME 8.7 fl (7.5-11.1); PLATELET COUNT 181 10^3/uL (134-434); RBC 3.44 M/mm3 (3.60-5.2); RDW 12.8 % (11.6-15.6); WHITE BLOOD COUNT 10.5 K/mm3 (4.0-10.0)
[2021-02-19 08:59] LABS: CALCIUM 8.4 mg/dL (8.5-10.1)
[2021-02-19 09:00] LABS: BLOOD UREA NITROGEN 15.5 mg/dL (7-18)
[2021-02-19 09:03] LABS: CREATININE 1.3 mg/dL (0.55-1.3)
[2021-02-19] MEDS: amLODIPine BESYLATE 10 MG TABLET (FP) PO SCH (09:25)
[2021-02-19] MEDS: ACETAMINOPHEN 325 MG TABLET (FP) PO PRN ×2 (09:25→21:02)
[2021-02-19] MEDS ORDERED: cefTRIAXone SODIUM 1 GM VIAL ONE (14:57)
[2021-02-19] MEDS ORDERED: DEXTROSE 5%-WATER - 50 ML IVPB ONE (14:57)
[2021-02-19] MEDS: CEFTRIAXONE 1 GM in DEXTROSE 5%-WATER - 50 ML IVPB SCH (15:24)
[2021-02-19] MEDS: ATORVASTATIN CA 20 MG TABLET (FP) PO SCH (21:02)
[2021-02-20] MEDS: amLODIPine BESYLATE 10 MG TABLET (FP) PO SCH (10:11)
[2021-02-20] MEDS ORDERED: DEXTROSE 5%-WATER - 50 ML IVPB ONE (14:21)
[2021-02-20] MEDS ORDERED: cefTRIAXone SODIUM 1 GM VIAL ONE (14:21)
[2021-02-20] MEDS: CEFTRIAXONE 1 GM in DEXTROSE 5%-WATER - 50 ML IVPB SCH (16:08)
[2021-02-20] MEDS: ATORVASTATIN CA 20 MG TABLET (FP) PO SCH (21:48)
[2021-02-21 05:35] LABS: URIC ACID 5.4 mg/dL (2.6-7.2)
[2021-02-21] MEDS: amLODIPine BESYLATE 10 MG TABLET (FP) PO SCH (09:37)
[2021-02-21 09:59] LABS: CALCIUM 8.8 mg/dL (8.5-10.1)
[2021-02-21 10:00] LABS: BLOOD UREA NITROGEN 19.1 mg/dL (7-18)
[2021-02-21 10:03] LABS: CREATININE 1.4 mg/dL (0.55-1.3)
[2021-02-21 12:55] VITALS: BMI 33.2
[2021-02-21 14:27] VITALS: BP 162/84; PULSE 87; TEMP 98.7
[2021-02-22] MEDS ORDERED: MULTIVITAMINS THER W-MINERALS COMBO TABLET (FP) PO SCH (10:00)
== END 2021-02-21 17:14 | disposition home or self-care (01) | DRG 269 ==
LOC: J2C 04:31 → EDSTATUS 10:30 → JICU 15:56 → J6S 02-18 19:13
PROVIDERS: ADMIT Family Medicine; ATTEND Surgery Vascular Surgery
PROC: 04V03DZ Restriction of Abdominal Aorta with Intraluminal Device, Percutaneous Approach (ICD-10-PCS; principal; 2021-02-16 08:00)
DX: I71.4 Abdominal aortic aneurysm, without rupture (principal); J98.11 Atelectasis; I12.9 Hypertensive chronic kidney disease with stage 1 through stage 4 chronic kidney disease, or unspecified chronic kidney disease; N18.9 Chronic kidney disease, unspecified; E78.5 Hyperlipidemia, unspecified; R50.9 Fever, unspecified; M25.569 Pain in unspecified knee; K59.00 Constipation, unspecified; E66.9 Obesity, unspecified; Z68.33 Body mass index [BMI] 33.0-33.9, adult
CPT/HCPCS: 36415; 71045-TC-FY; 73560-TC-LT-FY; 76000-TC-FY; 80048; 80053; 81003; 83735; 84100; 84550; 85025; 85027; 86850; 86900; 86901; 86922; 87040; 87086; 93005; 93010; 93971-TC; 94010; 94760; J0131; J1644